=== PATIENT | female | born 1975 | race American Indian/Alaskan Native ===

== ENCOUNTER → 2024-02-21 | Outpatient (CLI) | payer MEDICAID, SELFPAY ==
--- NOTE | 2024-02-21 12:00 | XR_ITS ---
Exam: MRI knee without contrast, right complete Date and time of exam: February 21, 2024 1254 hrs. Indications: Anterior knee pain and burning sensation instability joint clicking difficulty walking one year Technique: Multiple axial, coronal, and sagittal sections on the knee have been obtained. T2-Weighted sagittal, fat-suppressed images, TR 3,500, TE 62, T2 weighted coronal fat-saturated images, TR 3,500, TE 62 Proton density sagittal sections, TR 1800, TE 31. T-1 weighted coronal images, TR 524, TE 13.0 Findings: Medial meniscus anterior horn intact. Medial meniscus, body complex tear including vertical components outer one half body the medial meniscus coronal image 15. Posterior horn medial meniscus intact. Lateral meniscus anterior horn complex tears primarily vertical tears Lateral meniscus, body is intact Posterior horn lateral meniscus is intact Anterior cruciate ligament mildly attenuated Posterior cruciate ligament appears intact. Knee effusion is small. Quadriceps and patellar tendons appear intact. There is no evidence of tendinosis. Inflammatory change or fracture of Hoffa's fat pad is not seen. Medial patellar facet demonstrates moderate thinning. Lateral patellar facet cartilage demonstrates moderate thinning. Trochlear cartilage demonstrates moderate thinning. Marrow signal adequate. Medial collateral ligament appears intact. No meniscocapsular separation is seen. Illiotibial band and fibular collateral ligament are intact. Biceps femoris tendons appear intact. Medial femoral condylar articular cartilage demonstrates moderate thinning. Lateral femoral condylar articular cartilage demonstratesmoderate thinning. Tibial plateau cartilage demonstrates moderate thinning. Impression: Medial lateral meniscus tears as above
== END | disposition home or self-care (01) ==
PROVIDERS: PCP Nurse Practitioner Family; Referring Provider Nurse Practitioner Family; Visit Provider Nurse Practitioner Family
DX: S83.281A Other tear of lateral meniscus, current injury, right knee, initial encounter (principal); X58.XXXA Exposure to other specified factors, initial encounter; G89.29 Other chronic pain
CPT/HCPCS: 73721

== ENCOUNTER 2024-08-17 08:07 | Outpatient (AMB) | payer MEDICAID, SELFPAY ==
[2024-08-17 08:27] VITALS: BP 139/89; PULSE 74; RESP 19; TEMP 36.6; O2SAT 97; BMI 46.8
--- NOTE | 2024-08-17 08:27 | PD.ORTHCLVIS ---
Vital signs 08/17/24 08:27 Height 1.63 m Height Method Stated Weight 123.887 kg Weight Measurement Method Standing Scale BMI 46.8 BP 139/89 H Blood Pressure Source Automatic Cuff Blood Pressure Location Left Upper Arm Position Sitting Respiration 19 Pulse 74 Pulse Source Monitor Temp 97.8 F Temp Source Temporal Artery Scan Pulse Oximetry (%) 97 Oxygen Delivery Method Room Air Med/Allergies Allergies & Medications Allergies morphine Allergy (Mild, Verified 08/17/24 08:28) RASH Penicillins Allergy (Unknown, Verified 08/17/24 08:28) Medication Reconciliation diclofenac sodium 100 mg tablet,extended release 24 hr 100 mg PO QDAY 08/17/24 [History Confirmed 08/17/24] meloxicam 7.5 mg tablet 7.5 mg PO QDAY #45 tabs 08/17/24 [Rx] Exam Exam Breathing is nonlabored. Patient has a normal mood and affect. Bilateral extremities were evaluated and demonstrates sensation intact to light touch. Palpable pedal pulses are present. No significant edema is present. Bilateral hips were examined. The patient has no pain with log roll of the hips. Internal rotation to 30 degrees and external rotation to 30 degrees is painless. Negative FADIR. Left knee was examined today. The left knee is in reasonable alignment. Range of motion from 0-120 degrees. Knee is stable to varus and valgus as well as AP translation with <5mm. Patient has a negative McMurrays. There is no pain with patellofemoral compression and no crepitus noted. The knee is nontender to palpation. The right knee was also examined. The right knee is in varus alignment. Range of motion from 0-115 degrees. Knee is stable to varus and valgus as well as AP translation with <5mm. Patient has a negative McMurrays. There is no pain with patellofemoral compression and no crepitus noted. The knee is tender to palpation medially. An MRI demonstrates medial and lateral meniscal tears Assessment and Plan Problem List (1) Arthritis of right knee: Status: Acute Plan: Patient is a 49-year-old female with right knee arthritis and a degenerative meniscal tear. We discussed different treatment options. We discussed that I would recommend standing x-rays and likely get her set up for cortisone injections. I will treat her nonoperatively likely due to her weight. We recommend weight loss and we will start her on an anti-inflammatory. 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) MA Intake Visit Data Collection New Patient or Established: New Patient (never been to [facility]) Reason for Visit:: RIGHT KNEE PAIN Seen by Clinical Staff ONLY (RN/MA): No PCP or OBGYN visit in last 3 months: Yes Hx Now: No Do You Feel Safe at Home: Yes Authorities Contacted: N/A Questionairres Past Medical History Past Medical History Have you ever been diagnosed with any of the following: Respiratory Problems Smoking: No Smoking Exposure: No Subjective Visit Visit for: new patient and knee Immunization / Flu Flu Vaccine in the Last 12 Months: No Flu Vaccine Exclusion Criteria: No Exclusion Criteria History of Present Illness Chief complaint: Bilateral knee pain Patient is a pleasant 49-year-old female with right knee pain. This been ongoing for several years. She has tried diclofenac. She reports that her weight does fluctuate a lot and there has been recent increase in pain and weight gain. She has not had any injections. She has tried formal physical therapy Personal History Occupation: [employer] provided: Yes Pain Pain level (0-10): 6 Pain duration: CONSTANT Pain location: inside (medial), outside (lateral) and anterior Pain quality: dull and aching Pain timing: night, increases with activity and stairs Ambulatory data Ambulatory device: none Treatments Improvement with previous injections: No Number of Physical Therapy sessions: 6 Improvement with PT: No Improvement with NSAIDS: no Review of Systems Review of Systems: All systems negative unless otherwise noted in HPI.
--- NOTE | 2024-08-17 08:30 | XR_ITS ---
Examination: Bilateral AP knees 2 views Right lateral knee left lateral knee 2 views Bilateral axial knees single view TECHNIQUE: Bilateral AP knees standing single view, bilateral PA knees standing single view flexion Standing right lateral knee left lateral knee 2 views Bilateral axial knees single view Date and time: August 17, 2024 0846 hours INDICATIONS: Patient fell one month ago with injury to both knees, bilateral knee pain. FINDINGS: Moderate osteopenia Moderate narrowing medial and lateral joint spaces bilaterally Mild osteoarthritis patellofemoral joints No fractures No patellar dislocation IMPRESSION: No fractures or patellar dislocations
== END 2024-08-17 08:44 | disposition home or self-care (01) ==
PROVIDERS: PCP Nurse Practitioner Family; Referring Provider Nurse Practitioner Family; Supervising Provider Orthopaedic Surgery Adult Reconstructive Orthopaedic Surgery; Visit Provider Orthopaedic Surgery Adult Reconstructive Orthopaedic Surgery
DX: M17.11 Unilateral primary osteoarthritis, right knee (principal); S83.242A Other tear of medial meniscus, current injury, left knee, initial encounter; S83.289A Other tear of lateral meniscus, current injury, unspecified knee, initial encounter; X58.XXXA Exposure to other specified factors, initial encounter
CPT/HCPCS: 73564; 99204; G0463

== ENCOUNTER 2024-09-16 14:51 | Emergency (ER) | payer MEDICAID, SELFPAY ==
[2024-09-16 14:52] VITALS: BMI 46.3
[2024-09-16 15:00] VITALS: BP 144/70; PULSE 80; RESP 18; TEMP 36.7; O2SAT 98
--- NOTE | 2024-09-16 15:04 | XR_ITS ---
Examination: PA lateral chest 2 views TECHNIQUE: Upright PA lateral chest 2 views Date and time: September 16, 2024 1515 hours INDICATIONS: Chest pain shortness of breath FINDINGS: Normal heart size. Lungs are clear. The osseous structures are intact IMPRESSION: No active disease
--- NOTE | 2024-09-16 15:04 | EKG_ITS ---
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
--- NOTE | 2024-09-16 15:04 | XR_ITS ---
Examination: CT brain head without contrast. 2-D sagittal coronal reconstructions Date and time of exam:September 16, 2024 1509 hours Comparison October 05, 2004 INDICATIONS: Slurred speech headache dizziness today CTDI: vol (mGy):63.6 DLP: (mGycm):1308 Technique: Multiple CT axial sections of the brain have been obtained, 5 mm slice thickness. Contrast has not been administered. 2-D sagittal, coronal reconstructions have been obtained Low dose protocols were performed. One or more of the following dose reduction techniques were used; automated exposure control, adjustment of the mA and/or KV according to patient size, use of iterative reconstruction technique. Findings: No significant ventricular enlargement. Intra-axial or extra-axial hemorrhage density is not seen. No mass effect or midline shift Basal cisterns are not remarkable. Fourth ventricle is midline. Cranial vault intact. Stable right frontal convexity calcification Impression: Negative for acute hemorrhage, mass effect or midline shift Brain MRI follow-up would best assess for demyelinating disease, acute ischemic change
--- NOTE | 2024-09-16 15:04 | PD.EDRME ---
Rapid Medical Screening Exam RME Arrival date/time: 09/16/24 14:51 49-year-old female presents emergency dept today for complaint of chest pain Chief Complaint: Shortness of Breath/Dyspnea Time Seen by Provider: 09/16/24 15:00 Vital signs: Vital Signs Temperature 98.0 F 09/16/24 15:00 Pulse Rate 80 09/16/24 15:00 Respiratory Rate 18 09/16/24 15:00 Blood Pressure 144/70 H 09/16/24 15:00 Pulse Oximetry (%) 98 09/16/24 15:00 Oxygen Delivery Method Room Air 09/16/24 15:00
[2024-09-16 16:02] LABS: Basophils # (Auto) 0.1 Thou/mm3 (0.0-0.2); Basophils % (Auto) 1 % (0-2.5); Eosinophils # (Auto) 0.2 Thou/mm3 (0.0-0.5); Eosinophils % (Auto) 2 % (0-10); Hematocrit 37.3 % (36.0-46.0); Hemoglobin 13.1 g/dL (12.0-16.0); Immature Granulocytes Auto 0.03 Thou/mm3 (0.00-0.00); Lymphocytes # (Auto) 2.2 Thou/mm3 (1.0-4.8); Lymphocytes % (Auto) 23 % (10-50); Mean Corpuscular HGB Conc 35.1 g/dl (31.0-37.0); Mean Corpuscular Hemoglobin 31.6 pg (25.0-35.0); Mean Corpuscular Volume 90 fL (80-100); Monocytes # (Auto) 0.7 Thou/mm3 (0.0-0.8); Monocytes % (Auto) 8 % (0-12); Neutrophils # (Auto) 6.2 Thou/mm3 (1.8-7.7); Neutrophils % (Auto) 66 % (37-80); Nucleated Red Blood Cell # 0.00 Thou/mm3 (0.00-0.00); Nucleated Red Blood Cell % 0 /100 WBC (0); Platelet Count 348 Thou/mm3 (140-440); RDW Standard Deviation 46.4 fL (36.4-46.3); Red Blood Count 4.14 Miln/mm3 (4.00-5.20); White Blood Count 9.4 Thou/mm3 (3.6-11.0)
[2024-09-16 16:23] LABS: Alanine Aminotransferase 39 U/L (10-49); Albumin, Serum 4.0 gm/dL (3.5-5.0); Albumin/Globulin Ratio 1.3 (1.2-2.2); Alkaline Phosphatase 58 U/L (46-116); Anion Gap 7 (7-16); Aspartate Amino Transferase 33 U/L (0-34); BUN/Creatinine Ratio 9 Ratio (12-20); Bilirubin,Total 0.6 mg/dL (0.3-1.2); Blood Urea Nitrogen 6 mg/dL (9-23); Calcium 8.6 mg/dL (8.3-10.6); Calcium (Corrected) 8.6 mg/dL (8.5-10.1); Carbon Dioxide 23.9 mMol/L (20.0-31.0); Chloride 108 mMol/L (98-107); Creatinine (Component) 0.7 mg/dL (0.6-1.3); Estimated Creatinine Clearance 128.3 mL/min (>60); Globulin 3.0 gm/dL (2.3-3.5); Glucose 99 mg/dL (74-106); Osmolality,Calculated 275 (275-295); Potassium 4.1 mMol/L (3.4-5.1); Sodium 139 mMol/L (136-145); Total Protein 7.0 gm/dL (5.7-8.2); Troponin I < 0.020 ng/mL (0.0-0.045); eGFR > 60 See Note
[2024-09-16 16:27] LABS: HCG,Qualitative Serum Negative
--- NOTE | 2024-09-16 19:47 | EDNOTE_ITS ---
ED Chest Pain RME/HPI General Chief Complaint: Shortness of Breath/Dyspnea Stated Complaint: SOB, CHEST PAIN AND SLURRED SPEECH SINCE 1300 Time Seen by Provider: 09/16/24 15:00 Arrival date/time: 09/16/24 14:51 RME / HPI RME / HPI narrative: 49-year-old female presents emergency dept today for complaint of chest pain.'s been ongoing since several days, getting worse this morning, right-sided in location, radiating to the back. Pain is worse with sudden positional change especially her shoulder. Denies any shortness of breath. Denies any cough denies any other complaints. Patient denies any weakness to upper or lower extremity. Denies any slurring of speech. Denies any headache. Patient is ambulatory. Related Data Home Medications ?Medication ?Instructions ?Recorded ?Confirmed diclofenac sodium 100 mg 100 mg PO QDAY 08/17/2408/01 tablet,extended release 24 hr Previous Rx's ?Medication ?Instructions ?Recorded meloxicam 7.5 mg tablet 7.5 mg PO QDAY #45 tabs 08/01 09/24 Allergies Allergy/AdvReac Type Severity Reaction Status Date / Time morphine Allergy Mild RASH Verified 09/16/24 14:54 Penicillins Allergy Unknown Verified 09/16/24 14:54 Review of Systems Review of Systems Narrative Review of Systems: Review of system reviewed and within normal limits except mentioned in HPI ED Exam Narrative Physical exam: VITAL SIGNS: Reviewed. GENERAL APPEARANCE: Alert and interactive, follows commands, no acute distress, HEAD AND FACE: Non-traumatic. ENT: PERRL, pink conjunctivitis, eyelid no trauma, Mucous membrane moist. NECK: Supple, nontender, no nuchal rigidity. CHEST: No tenderness, no crepitus, no paradoxical movement, no retractions. LUNGS: Clear, well ventilated, symmetric, no rales, no wheezing, no ronchi, no stridor, good breath sounds bilaterally. HEART: Regular rate, regular rhythm, no murmur, no gallops. ABDOMEN: Soft, positive bowel sounds, nondistended, no guarding, nontender, no rebound, no masses, RECTAL: Deferred. GENITAL: Deferred. NEUROLOGICAL: Gross motor function intact sensory function intact, Appropriate for age. MUSCULOSKELETAL: low back nontender, full range of motion. EXTREMITIES: Nontender, full range of motion. SKIN: Color pink, dry, no rash, no lacerations, no abrasions, no contusions. LYMPHATICS: Deferred. Course Quality Measures none Orders Category Date Time Status EKG (ED ONLY) *Do not use* NOW Care 09/16/24 15:[address] head/brain wo con Stat Exams 09/16/24 15:04 Completed EKG (ED Only) Stat Exams 09/16/24 15:04 Draft XR chest 2V Stat Exams 09/16/24 15:04 Completed CBC Stat Lab 09/16/24 15:49 Completed Comprehensive Metabolic Panel Stat Lab 09/16/24 15:49 Completed HCG,Qualitative Serum Stat Lab 09/16/24 15:49 Completed Troponin I Stat Lab 09/16/24 15:49 Completed Vital Signs Vital signs: Vital Signs Temperature 98.0 F 09/16/24 15:00 Pulse Rate 80 09/16/24 15:00 Respiratory Rate 18 09/16/24 15:00 Blood Pressure 144/70 H 09/16/24 15:00 Pulse Oximetry (%) 98 09/16/24 15:00 Oxygen Delivery Method Room Air 09/16/24 15:00 Chest Pain MDM Narrative MDM Narrative:: 49-year-old female presents emergency dept today for complaint of chest pain.'s been ongoing since several days, getting worse this morning, right-sided in location, radiating to the back. Pain is worse with sudden positional change especially her shoulder. Denies any shortness of breath. Denies any cough denies any other complaints. Patient denies any weakness to upper or lower extremity. Denies any slurring of speech. Denies any headache. Patient is ambulatory. CT scan of the head came back unremarkable. Patient's workup including troponin came back normal. Patient EKG showed normal sinus rhythm, ventricular rate of 79 bpm, no ST segment elevation depression noted. I personally reviewed and interpreted the x-ray of this patient. There is no acute abnormalities found, no infiltrates no pneumothorax no hemothorax normal chest x-ray. Review of othe r structures was without significant abnormal findings also. I additionally reviewed the radiologist report and agree with the interpretation. Prior to discharge patient is ambulatory, I did not notice any weakness to upper or lower extremity. There is no facial asymmetry there is no slurring of speech. Results discussed with the patient. Patient data External records reviewed:: None Clinical information provided by:: patient Social determinants that could affect healthcare access:: none Patient has the following chronic illnesses:: Diabetes hypertension How is presenting disease/condition affected by chronic disease/condition?: exacerbated by Evaluation data The following diagnostics were reviewed and interpreted by me:: lab results, radiology exam(s) and EKG tracing(s) Lab and/or radiology exams considered but not ordered:: None Interpretation Summary: See results MDM Medications / Prescriptions Medications or Prescriptions considered but not ordered:: None Medication administrations:: None Consultations Consultation(s) initiated? (list below): No Diagnosis Chest Pain Differential Diagnosis: pneumothorax, stable angina and chest pain Most likely diagnosis given after review of the tests above:: Right-sided chest pain Admission Indicated Admission indicated?: not indicated Admission Request Was there a request for admission?: No Disposition Plan Disposition Plan: Discharge Discharge Attestation Discharge Attestation: The patient was given an opportunity to ask questions and understood the discharge instructions. Discharge instructions specifically effects, indications for sooner follow up or return to the emergency department, and the expected course of current diagnosis. Patient condition: Stable Discharge Plan Plan Patient Disposition: HOME (Self Care) Discharge Disposition comment: Stable Prescriptions/Referrals Prescriptions/Med Rec: No Action diclofenac sodium 100 mg tablet extended release 24 hr 100 mg PO QDAY meloxicam 7.5 mg tablet 7.5 mg PO QDAY Qty: 45 3RF Referrals: No Primary/Family,Physician [Primary Care Provider] - In 1 week Problem List Clinical Impression: Chest pain Patient/Caregiver Discharge Instructions Discharge Activity: activity as tolerated Education Materials: ED Chest Pain, Noncardiac Additional Instructions: Thank you for the opportunity for serving you today. You are stable for discharged . You are advised to: Follow-up with your PCP in 1 to 2 days Return to ED for worsening of symptoms Increase oral fluids Take [id number] Tylenol or Motrin as needed for pain Print Language: Tajik Stand Alone Forms: Kelly Award Info., Work/School Release, Patient Portal Info Letter PETEY/ALBERTO Supervising Physician PETEY/ALBERTO Supervising Physician: MD linda
== END 2024-09-16 20:04 | disposition home or self-care (01) ==
PROVIDERS: Nurse Practitioner Primary Care; Emergency Provider Emergency Medicine
DX: R07.89 Other chest pain (principal); R06.02 Shortness of breath; R47.81 Slurred speech; R51.9 Headache, unspecified; R42 Dizziness and giddiness; R94.31 Abnormal electrocardiogram [ECG] [EKG]; I10 Essential (primary) hypertension
CPT/HCPCS: 36415; 70450; 71046; 80053; 84484; 84703; 85025; 93005; 99283

== ENCOUNTER 2024-09-30 08:18 | Outpatient (AMB) | payer MEDICAID, OTHER, SELFPAY ==
--- NOTE | 2024-09-30 08:31 | PD.ORTHCLVIS ---
Vital signs 09/30/24 08:32 Height 1.63 m Height Method Measured Weight 121.166 kg Weight Measurement Method Standing Scale BMI 45.6 BP 129/80 Blood Pressure Source Automatic Cuff Blood Pressure Location Left Upper Arm Position Sitting Respiration 18 Pulse 81 Pulse Source Monitor Temp 97.5 F Temp Source Temporal Artery Scan Pulse Oximetry (%) 97 Oxygen Delivery Method Room Air Med/Allergies Allergies & Medications Allergies morphine Allergy (Mild, Verified 09/30/24 08:33) RASH Penicillins Allergy (Unknown, Verified 09/30/24 08:33) Medication Reconciliation diclofenac sodium 100 mg tablet,extended release 24 hr 100 mg PO QDAY 08/17/24 [History Confirmed 09/30/24] meloxicam 7.5 mg tablet 7.5 mg PO QDAY #45 tabs 08/17/24 [Rx Confirmed 09/30/24] celecoxib 200 mg capsule 200 mg PO BID #60 caps 09/30/24 [Rx] Exam Exam Breathing is nonlabored. Patient has a normal mood and affect. Bilateral extremities were evaluated and demonstrates sensation intact to light touch. Palpable pedal pulses are present. No significant edema is present. Bilateral hips were examined. The patient has no pain with log roll of the hips. Internal rotation to 30 degrees and external rotation to 30 degrees is painless. Negative FADIR. Left knee was examined today. The left knee is in reasonable alignment. Range of motion from 0-120 degrees. Knee is stable to varus and valgus as well as AP translation with <5mm. Patient has a negative McMurrays. There is no pain with patellofemoral compression and no crepitus noted. The knee is nontender to palpation. The right knee was also examined. The right knee is in varus alignment. Range of motion from 0-115 degrees. Knee is stable to varus and valgus as well as AP translation with <5mm. Patient has a negative McMurrays. There is no pain with patellofemoral compression and no crepitus noted. The knee is tender to palpation medially. An MRI demonstrates medial and lateral meniscal tears X-rays from 08/19/2024 demonstrates moderate joint space narrowing of the right Assessment and Plan Problem List (1) Arthritis of right knee: Status: Acute Plan: Patient is a 49-year-old female with right knee arthritis and a degenerative meniscal tear. We discussed different treatment options. We discussed weight loss as well as anti-inflammatories. I sent her prescription for Celebrex. We will do a cortisone injection of the right knee today Recommend knee cortisone injection as patient would like to proceed with conservative treatment at this time. The risks and benefits of the procedure were reviewed with the patient and patient gave verbal consent to continue with the procedure. Procedure: performed by Dr. Christina Using sterile technique the Right knee was thoroughly prepped with alcohol, and approximately 1 cc of Depo-Medrol 80mg/mL and 4 cc of 0.2% ropivacaine was injected without resistance into the medial tibial femoral joint space. The patient tolerated the procedure. Office Procedures GNS Level of Care Nursing/Assessment Patient Status: Established Patient Nursing Assessment/Reassesment: Medication Reconciliation, Update PMH in EMR and Vital Signs Coordination of Care: Complex Care and Chronic Disease 1-5, Education Complex Pt/Fam, Consent,records obtained, informed consent, Results/Orders obtained and Staff clarify orders Established Patient Charge Established Patient Point Assignment: 95 Established Patient Point Charge: EP Level 3 (80-115) Surgical Proc/IM SQ injection Major Surgical Procedure: Yes (KNEE INJECTION) Medication Given Medication Given Medication Given: Yes Documented Dose Given: 1 Route: Infiitration Medication Given Medication Given Medication Given: Yes Documented Dose Given: 4 Route: Infiitration Office Meds methylprednisolone acetate 80 mg/mL suspension for injection Performing Provider: Fred Christina MD Performing Location: [facility] Administered by: Fred Christina MD on 09/30/24 08:58 Dose Route Admin Location Dispensed Lot Number Expiration Date [facility] Lace Stripper 80 mg intra-articular KNEE 1 mL [id number] 07/31/26 [address]-7 [employer] ropivacaine (PF) 2 mg/mL (0.2 %) injection solution Performing Provider: Fred Christina MD Performing Location: [facility] Administered by: Fred Christina MD on 09/30/24 08:58 Dose Route Admin Location Dispensed Lot Number Expiration Date [facility] Lace Stripper 20 mL Infiltration KNEE 20 mL [id number] 12/31/25 [address]-81 [place] Intake Visit Data Collection New Patient or Established: Established Patient (seen at [facility] within 3 years) Reason for Visit:: RIGHT KNEE PAIN AND XRAY RESULTS Seen by Clinical Staff ONLY (RN/MA): No Time Signal Wirer Required: No PCP or OBGYN visit in last 3 months: Yes Hx Now: No Do You Feel Safe at Home: Yes Authorities Contacted: N/A Questionairres Past Medical History Past Medical History Have you ever been diagnosed with any of the following: Respiratory Problems Smoking: No Smoking Exposure: No Subjective Visit Visit for: follow up visit and knee Immunization / Flu Flu Vaccine in the Last 12 Months: No Flu Vaccine Exclusion Criteria: No Exclusion Criteria History of Present Illness Chief complaint: XRAY RESULTS AND KNEE INJECTIONS Patient is a pleasant 49-year-old female with right knee pain. This been ongoing for several years. She has tried diclofenac. She reports that her weight does fluctuate a lot and there has been recent increase in pain and weight gain. She has not had any injections. She has tried formal physical therapy Personal History Occupation: [employer] provided: Yes Pain Pain level (0-10): 6 Pain duration: CONSTANT Pain location: inside (medial), outside (lateral) and anterior Pain quality: dull and aching Pain timing: night, increases with activity and stairs Ambulatory data Ambulatory device: none Treatments Improvement with previous injections: No Number of Physical Therapy sessions: 6 Improvement with PT: No Improvement with NSAIDS: no Review of Systems Review of Systems: All systems negative unless otherwise noted in HPI.
[2024-09-30 08:32] VITALS: BP 129/80; PULSE 81; RESP 18; TEMP 36.4; O2SAT 97; BMI 45.6
--- NOTE | 2024-09-30 08:55 | XR_ITS ---
Examination: Left elbow 3 views Technique: Elbow AP, oblique, lateral 3 views Exam date and time: September 30, 2024 0926 hours INDICATIONS: Patient fell 3 months ago with injury to the elbow, elbow pain. FINDINGS: Sclerotic focus in the radial neck 16 mm No fracture No elbow effusion IMPRESSION: No fracture Recommend 3 month follow-up to document stability of sclerotic focus in the radial neck.
== END 2024-09-30 09:19 | disposition home or self-care (01) ==
PROVIDERS: PCP Nurse Practitioner Family; Referring Provider Nurse Practitioner Family; Supervising Provider Orthopaedic Surgery Adult Reconstructive Orthopaedic Surgery; Visit Provider Orthopaedic Surgery Adult Reconstructive Orthopaedic Surgery
DX: M17.11 Unilateral primary osteoarthritis, right knee (principal); M25.561 Pain in right knee
CPT/HCPCS: 20610; 73080; 99213; J1010; J2795; G0463

== ENCOUNTER 2025-02-08 09:16 | Outpatient (AMB) | payer MEDICAID, SELFPAY ==
[2025-02-08 09:54] VITALS: BP 164/95; PULSE 99; RESP 18; TEMP 36.2; O2SAT 97; BMI 42.5
--- NOTE | 2025-02-08 09:54 | PD.ORTHCLVIS ---
Vital signs 02/08/25 09:54 Height 1.63 m Height Method Stated Weight 113.086 kg Weight Measurement Method Standing Scale BMI 42.5 BP 164/95 H Blood Pressure Source Automatic Cuff Blood Pressure Location Left Upper Arm Position Sitting Respiration 18 Pulse 99 Pulse Source Monitor Temp 97.1 F Temp Source Temporal Artery Scan Pulse Oximetry (%) 97 Oxygen Delivery Method Room Air Med/Allergies Allergies & Medications Allergies morphine Allergy (Mild, Verified 02/08/25 09:54) RASH Penicillins Allergy (Unknown, Verified 02/08/25 09:54) Medication Reconciliation diclofenac sodium 100 mg tablet,extended release 24 hr 100 mg PO QDAY 08/17/24 [History Confirmed 02/08/25] meloxicam 7.5 mg tablet 7.5 mg PO QDAY #45 tabs 08/17/24 [Rx Confirmed 02/08/25] celecoxib 200 mg capsule 200 mg PO BID #60 caps 09/30/24 [Rx Confirmed 02/08/25] Exam Exam Breathing is nonlabored. Patient has a normal mood and affect. Bilateral extremities were evaluated and demonstrates sensation intact to light touch. Palpable pedal pulses are present. No significant edema is present. Bilateral hips were examined. The patient has no pain with log roll of the hips. Internal rotation to 30 degrees and external rotation to 30 degrees is painless. Negative FADIR. Left knee was examined today. The left knee is in reasonable alignment. Range of motion from 0-120 degrees. Knee is stable to varus and valgus as well as AP translation with <5mm. Patient has a negative McMurrays. There is no pain with patellofemoral compression and no crepitus noted. The knee is nontender to palpation. The right knee was also examined. The right knee is in varus alignment. Range of motion from 0-115 degrees. Knee is stable to varus and valgus as well as AP translation with <5mm. Patient has a negative McMurrays. There is no pain with patellofemoral compression and no crepitus noted. The knee is tender to palpation medially. An MRI demonstrates medial and lateral meniscal tears X-rays from 08/19/2024 demonstrates moderate joint space narrowing of the right Assessment and Plan Problem List (1) Arthritis of right knee: Status: Acute Plan: Patient is a 50-year-old female with right knee arthritis and a degenerative meniscal tear. We discussed different treatment options. We discussed weight loss as well as anti-inflammatories. I sent her prescription for Celebrex. We will do a cortisone injection of the right knee today We also informed the patient that she has a sclerotic lesion on the left elbow at the radial head. She should see a specialist for this as this occurred after trauma and could represent several things. Recommend knee cortisone injection as patient would like to proceed with conservative treatment at this time. The risks and benefits of the procedure were reviewed with the patient and patient gave verbal consent to continue with the procedure. Procedure: performed by Dr. Christina Using sterile technique the Right knee was thoroughly prepped with alcohol, and approximately 1 cc of Depo-Medrol 80mg/mL and 4 cc of 0.2% ropivacaine was injected without resistance into the medial tibial femoral joint space. The patient tolerated the procedure. Recommend knee cortisone injection as patient would like to proceed with conservative treatment at this time. The risks and benefits of the procedure were reviewed with the patient and patient gave verbal consent to continue with the procedure. Procedure: performed by Dr. Christina Using sterile technique the leftknee was thoroughly prepped with alcohol, and approximately 1 cc of Depo-Medrol 80mg/mL and 4 cc of 0.2% ropivacaine was injected without resistance into the medial tibial femoral joint space. The patient tolerated the procedure. Office Procedures GNS Level of Care Nursing/Assessment Patient Status: Established Patient Nursing Assessment/Reassesment: Medication Reconciliation, Update PMH in EMR and Vital Signs Coordination of Care: Complex Care and Chronic Disease 1-5, Education Complex Pt/Fam, Consent,records obtained, informed consent, Results/Orders obtained and Staff clarify orders Established Patient Charge Established Patient Point Assignment: 95 Established Patient Point Charge: EP Level 3 (80-115) Surgical Proc/IM SQ injection Minor Surgical Procedure: Yes (BILATERAL KNEE INJECTION) Medication Given Medication Given Medication Given: Yes Documented Dose Given: 2 Route: Infiitration Medication Given Medication Given Medication Given: Yes Documented Dose Given: 8 Route: Infiitration Office Meds methylprednisolone acetate 80 mg/mL suspension for injection Performing Provider: Fred Christina MD Performing Location: [facility] Administered by: Fred Christina MD on 02/08/25 12:10 Dose Route Admin Location Dispensed Lot Number Expiration Date Package NDC NDC [employer] 160 mg intra-articular KNEE 2 mL [id number] 10/30/26 [address]-6 [id number] [employer] ropivacaine (PF) 2 mg/mL (0.2 %) injection solution Performing Provider: Fred Christina MD Performing Location: [facility] Administered by: Fred Christina MD on 02/08/25 12:10 Dose Route Admin Location Dispensed Lot Number Expiration Date Package PRC [facility]AMED [facility] [employer] 40 mL Infiltration KNEE 40 mL [id number] 04/01/27 63165-036-13 [id number] [facility] Intake Visit Data Collection New Patient or Established: Established Patient (seen at [facility] within 3 years) Reason for Visit:: RIGHT KNEE PAIN INJ Seen by Clinical Staff ONLY (RN/MA): No 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 This been ongoing for several years. She has tried diclofenac. She reports that her weight does fluctuate a lot and there has been recent increase in pain and weight gain. She has tried formal physical therapy Personal History Occupation: [employer] provided: Yes Pain Pain level (0-10): 6 Pain duration: CONSTANT Pain location: inside (medial), outside (lateral) and anterior Pain quality: dull and aching Pain timing: night, increases with activity and stairs Ambulatory data Ambulatory device: none Treatments Improvement with previous injections: No Number of Physical Therapy sessions: 6 Improvement with PT: No Improvement with NSAIDS: no Review of Systems Review of Systems: All systems negative unless otherwise noted in HPI.
== END 2025-02-08 10:01 | disposition home or self-care (01) ==
LOC: HODSRG 09:16
PROVIDERS: PCP Nurse Practitioner Family; Referring Provider Nurse Practitioner Family; Supervising Provider Orthopaedic Surgery Adult Reconstructive Orthopaedic Surgery; Visit Provider Orthopaedic Surgery Adult Reconstructive Orthopaedic Surgery
DX: M17.11 Unilateral primary osteoarthritis, right knee (principal); S83.206D Unspecified tear of unspecified meniscus, current injury, right knee, subsequent encounter; X58.XXXD Exposure to other specified factors, subsequent encounter; M25.822 Other specified joint disorders, left elbow
CPT/HCPCS: 20610; 99213; J1010; J2795; G0463